=== PATIENT | female | born 1955 | race Caucasian/White ===

== ENCOUNTER → 2020-06-03 08:44 | Outpatient (CLI) | payer OTHER, SELFPAY ==
[2020-06-03 10:41] LABS: Coronavirus 19 IgG Antibody Negative (Negative); Coronavirus 19 IgM Antibody Negative (Negative)
== END ==
PROVIDERS: PCP Internal Medicine Adolescent Medicine; Visit Provider Nurse Practitioner Family
DX: Z03.818 Encounter for observation for suspected exposure to other biological agents ruled out (principal)
CPT/HCPCS: 36415; 86328

== ENCOUNTER → 2021-04-27 13:53 | Outpatient (POV) | payer OTHER, SELFPAY | DX: Z00.00 Encounter for general adult medical examination without abnormal findings (principal) ==

== ENCOUNTER 2022-06-30 10:47 | Emergency (ER) | payer OTHER, SELFPAY ==
[2022-06-30 11:08] VITALS: BP 134/67; PULSE 85; RESP 18; TEMP 36.9; O2SAT 99; BMI 32.8
[2022-06-30 11:19] LABS: UTC Strep Screen (Rapid) Negative (Negative)
--- NOTE | 2022-06-30 11:29 | EXP.UTC ---
Discharge Plan Disposition Patient Disposition: Home, Self-Care Condition: Good Prescriptions Prescriptions: New prednisone [prednisone] 20 mg tablet 20 mg PO BID 5 Days Qty: 10 0RF amoxicillin-pot clavulanate 875-125 mg Tablet 1 tab PO Q12H Qty: 20 0RF (DME) COVID-19 antigen test Kit See Rx Instructions .Route Qty: 8 0RF Rx Instructions: As directed Referrals Follow up/Referrals: Alistair Mayberry MD [Primary Care Provider] - See instructions Activity Restrictions/Add. Instructions Additional Instructions/Restrictions: Take all meds as prescribed until gone Follow up with Dr Mayberry if not improving Clinical Impressions Clinical Impression: Sinusitis Instructions Patient Instructions: DI for Sinusitis Discharge ED Provider: Kerri Hare [facility] HPI General Stated complaint: sore throat, headache,dental pain Mode of Arrival: Ambulatory Source of Information: Patient Limitations: No Limitations Time Seen by Provider: 06/30/22 11:19 Description of Symptoms (Recalled from Triage Doc. by RN): pt comes in with c/o sore throat, headache, cough, tmj dental pain. symptoms began 1 week ago. pt states that she was seen by her dentist and he did not mention anything being wrong with jaw. HEENT Symptoms (Recalled from RN notes): Yes Resp Symptoms (Recalled from RN notes): Yes Skin Symptoms (Recalled from RN notes): No MS Symptoms (Recalled from RN notes): Yes Functional Status (Recalled from RN notes): n/a History of Present Illness Provider Complaint: Cough, sore throat, headache, pain in left upper jaw for over a week. Saw dentist - no cavities or other issues. Home COVID tests negative. No fever. Onset (ago): day(s) (8) Location: head and face Relieving factors: none Exacerbating factors: none Associated symptoms: denies other symptoms Treatments prior to arrival: none Related Data Previous Rx's Medication Instructions Recorded COVID-19 antigen test #8 ea 06/30/22 amoxicillin 875 mg-potassium 1 tab PO Q12H #20 tabs 06/30/22 clavulanate 125 mg tablet prednisone 20 mg tablet 20 mg PO BID 5 days #10 tabs 06/30/22 Allergies Allergy/AdvReac Type Severity Reaction Status Date / Time Sulfa (Sulfonamide Allergy Severe Unknown Verified 06/30/22 11:13 Antibiotics) allergy [SULFA (SULFONAMIDE reaction ANTIBIOTICS)] azithromycin Allergy Intermediate Verified 06/30/22 11:13 [From ZITHROMAX Z-DOMINICK] silver sulfadiazine Allergy Intermediate Verified 06/30/22 11:13 [From SILVADENE] Worker's Comp Is this a Worker's Comp case?: No PFSH [facility] Social History (Updated 06/30/22 @ 11:14 by Hung Huerta RN) Smoking Status: Never smoker alcohol intake: never current occupational status: other Travel in the last 8 weeks: None ROS Obtained: Yes All systems reviewed & no additional complaints except as documented Constitutional Constitutional: Denies fever(s) and Reports headache(s) ENT Ears, Nose, Mouth, and Throat: Reports dental pain, Reports facial pain, Reports headache(s), Reports sinus pain and Reports sore throat Neurologic Neurologic: Reports headache(s) Physical Exam General General appearance: alert and in no apparent distress Head Head exam: atraumatic, normocephalic and normal inspection Eye Eye exam: Present normal appearance, PERRL and EOMI ENT ENT exam: Present normal exam, normal oropharynx, mucous membranes moist, TM's normal bilaterally and normal external ear exam Expanded ENT Exam Nose exam: Present sinus tenderness Teeth exam: Present normal inspection Throat exam: Present normal inspection Neck Neck exam: Present normal inspection, full ROM and trachea midline; Absent meningismus or lymphadenopathy Chest Chest inspection: Present normal inspection and symmetric chest wall rise; Absent tenderness Respiratory Respiratory exam: Present normal lung sounds bilaterally; Absent respiratory distress Cardiovascular Cardiovascular ex
[2022-06-30 11:44] VITALS: BP 134/67; PULSE 85; RESP 18; TEMP 36.9
== END 2022-06-30 11:48 | disposition home or self-care (01) ==
PROVIDERS: Emergency Provider Physician Assistant; PCP Internal Medicine Adolescent Medicine
DX: J32.9 Chronic sinusitis, unspecified (principal)
CPT/HCPCS: 87880; 99212; G0463

== ENCOUNTER 2022-08-15 06:50 | Day surgery (SDC) | payer OTHER, SELFPAY ==
[2022-08-15 07:12] VITALS: BP 120/83; PULSE 81; RESP 20; TEMP 36.5; O2SAT 98; BMI 31.7
[2022-08-15 08:59] VITALS: BP 131/76; PULSE 81; RESP 16; O2SAT 100
[2022-08-15 09:04] VITALS: BP 122/68; PULSE 81; RESP 16; O2SAT 100
[2022-08-15 09:09] VITALS: BP 115/67; PULSE 76; RESP 16; O2SAT 100
[2022-08-15 09:13] VITALS: BP 120/66; PULSE 77; RESP 16; O2SAT 100
[2022-08-15 09:15] VITALS: BP 117/80; PULSE 79; RESP 18; TEMP 36.6; O2SAT 100
== END 2022-08-15 09:30 | disposition home or self-care (01) ==
LOC: OR 06:51
PROVIDERS: PCP Internal Medicine Adolescent Medicine; Visit Provider Ophthalmology
PROC: (CPT 66984; principal; 2022-08-15 08:00)
DX: H25.813 Combined forms of age-related cataract, bilateral (principal)
CPT/HCPCS: 66984; V2632

== ENCOUNTER 2022-08-29 10:33 | Day surgery (SDC) | payer OTHER, SELFPAY ==
[2022-08-28 14:15] VITALS: BMI 31.7
[2022-08-29] VITALS (7 sets, daily range): BP systolic 113–125; BP diastolic 63–75; PULSE 79–92; RESP 16–18; TEMP 36.5–36.6; O2SAT 97–100
== END 2022-08-29 12:56 | disposition home or self-care (01) ==
LOC: OR 10:33
PROVIDERS: PCP Internal Medicine Adolescent Medicine; Visit Provider Ophthalmology
PROC: (CPT 66984; principal; 2022-08-29 13:30)
DX: H25.813 Combined forms of age-related cataract, bilateral (principal)
CPT/HCPCS: 66984; V2632

== ENCOUNTER 2024-01-01 09:13 | Emergency (ER) | payer OTHER, SELFPAY ==
[2024-01-01 09:20] VITALS: BP 123/71; PULSE 94; RESP 18; TEMP 36.7; O2SAT 98; BMI 33.7
--- NOTE | 2024-01-01 09:36 | ED_ITS ---
Discharge Plan Disposition Patient Disposition: Home, Self-Care Condition: Good Prescriptions Prescriptions: New amoxicillin 500 mg capsule 500 mg PO BID 10 Days Qty: 20 0RF No Action multivitamin Tablet 1 tab PO DAILY ascorbic acid (vitamin C) [Vitamin C] 1,000 mg Tablet 1 g PO DAILY cholecalciferol (vitamin D3) [Vitamin D3] 25 mcg (1,000 unit) Tablet,Chewable 25 mcg PO DAILY (DME) COVID-19 antigen test Kit See Rx Instructions .ROUTE Rx Instructions: As directed Referrals Follow up/Referrals: Alistair Mayberry MD [Primary Care Provider] - See instructions Activity Restrictions/Add. Instructions Additional Instructions/Restrictions: *Monitor Temp, Over the counter Motrin or Tylenol as directed/as needed Tylenol every 4 hours and Motrin every 6 hours (as long as your family doctor has told you that you can take it) for fever or pain. and straight to ER if unable to lower temp less than 101.0 after medication given *Warm salt water gargles may help to soothe the throat *Throat Lozenges? *Warm fluids like tea with honey may help to soothe the throat? *Sleep elevated *Humidifier/Vaporizer *Your throat swab was sent for culture. Those results are typically sent to your primary care. Be sure to follow up in 2-3 days with your family doctor/primary care physician if no improvement so they can review those result and treat if necessary. If you don?t have a primary care doctor, I recommend you get one but in the mean time, you will have to return to a walk in clinic Follow up IMMEDIATELY for new or worsening symptoms or no Noticeable improvement over the next 48-72 hours. 911 for difficulty breathing or swallowing Clinical Impressions Clinical Impression: Pharyngitis Instructions Patient Instructions: Sore Throat, Amoxicillin Discharge ED Provider: Deborah Poole [facility] General Stated complaint: sore throat, TREJO Mode of Arrival: Ambulatory Source of Information: Patient Limitations: No Limitations Time Seen by Provider: 01/01/24 09:36 Description of Symptoms (Recalled from Triage Doc. by RN): Pt's symptoms are TREJO, sore throat, and burning in throat. HEENT Symptoms (Recalled from RN notes): Yes Resp Symptoms (Recalled from RN notes): No Skin Symptoms (Recalled from RN notes): No MS Symptoms (Recalled from RN notes): No Functional Status (Recalled from RN notes): n/a History of Present Illness Provider Complaint: Patient states that she noticed yesterday she was having burning and scratchy like feeling in her throat and last night she had a headache like she typically gets when she has strep throat States this morning her throat was still bothering her and hurting when she swallows so she came in States that she has also been around someone with flu and wanted tested for that Related Data Home Medications Medication Instructions Recorded Confirmed ascorbic acid (vitamin C) 1,000 mg 1 g PO DAILY Supplement 08/15/22 01/01/24 tablet (Vitamin C) cholecalciferol (vitamin D3) 25 25 mcg PO DAILY Supplement 08/15/22 01/01/24 mcg (1,000 unit) chewable tablet (Vitamin D3) COVID-19 antigen test 08/28/22 08/28/22 multivitamin 1 tab PO DAILY 01/01/24 01/01/24 Previous Rx's Medication Instructions Recorded amoxicillin 500 mg capsule 500 mg PO BID 10 days #20 caps 01/01/24 Allergies Allergy/AdvReac Type Severity Reaction Status Date / Time Sulfa (Sulfonamide Allergy Severe Unknown Verified 01/01/24 09:34 Antibiotics) allergy [SULFA (SULFONAMIDE reaction ANTIBIOTICS)] azithromycin Allergy Intermediate swelling, Verified 01/01/24 09:34 [From ZITHROMAX Z-DOMINICK] blurred vision, pressure in eyes silver sulfadiazine Allergy Intermediate swelling Verified 01/01/24 09:34 [From SILVADENE] Worker's Comp Is this a Worker's Comp case?: No PFSH [facility] Disclaimer: The information contained in this section may have been updated after the ruchi chester was seen, as this information can be updated by other users. Medical History (Updated 01/01/24 @ 10:01 by Deborah Poole APRN) Pneumonia Sinus headache Allergies History of cataract Surgical History History of ankle surgery Family History Father Prostate cancer Grandmother CHF (congestive heart failure) Social History Smoking Status: Never smoker alcohol intake: never current occupational status: employed Travel in the last 8 weeks: None caffeine: Yes ROS Obtained: Yes All systems reviewed & no additional complaints except as documented and Yes Systems reviewed as appropriate & no additional complaints except as documented Constitutional Constitutional: Reports system reviewed and no additional complaints, except as documented, Reports as per HPI and Reports headache(s) ENT Ears, Nose, Mouth, and Throat: Reports system reviewed and no additional complaints, except as documented, Reports as per HPI, Reports headache(s) and Reports sore throat Cardiovascular Cardiovascular: Reports system reviewed and no additional complaints, except as documented and Reports as per HPI Respiratory Respiratory: Reports system reviewed and no additional complaints, except as documented and Reports as per HPI Gastrointestinal Gastrointestingal: Reports system reviewed and no additional complaints, except as documented and as per HPI Neurologic Neurologic: Reports headache(s) Physical Exam General General appearance: alert and in no apparent distress ENT ENT exam: Present mucous membranes moist Expanded ENT Exam Nose exam: Absent sinus tenderness Throat exam: Present tonsillar erythema Respiratory Respiratory exam: Present normal lung sounds bilaterally; Absent respiratory distress or wheezes Cardiovascular Cardiovascular exam: Present regular rate, normal rhythm and normal heart sounds Neurological Exam Neurological exam: Present alert, oriented X3 and normal gait Medical Decision Making Irvin Inquiry Pt receiving controlled substance: No Irvin was queried for this patient: No Vital Signs: 01/01/24 09:20 Temperature 98.1 F Temperature Source Oral Pulse Rate [Right Radial] 94 H Respiratory Rate 18 Blood Pressure [Right Arm] 123/71 Blood Pressure Mean [Right Arm] 88 Blood Pressure Source [Right Arm] Automatic Cuff Blood Pressure Position [Right Arm] Sitting 02 Sat by Pulse Oximetry 98 Oxygen Delivery Method Room Air Lab Data Lab results reviewed: Yes I reviewed the patient's lab results.
[2024-01-01 09:43] LABS: UTC Strep Screen (Rapid) Negative (Negative)
[2024-01-01 09:44] LABS: UTC Influenza A Antigen Negative (Negative); UTC Influenza B Antigen Negative (Negative)
[2024-01-01 10:06] VITALS: BP 123/71; PULSE 94; RESP 18; TEMP 36.7; O2SAT 98
== END 2024-01-01 10:06 | disposition home or self-care (01) ==
PROVIDERS: Emergency Provider Nurse Practitioner; PCP Internal Medicine Adolescent Medicine
DX: J02.9 Acute pharyngitis, unspecified (principal); R51.9 Headache, unspecified
CPT/HCPCS: 87804; 87880; 99212; 99214; G0463